=== PATIENT | female | born 1985 | race Caucasian/White ===

== ENCOUNTER 2023-11-30 18:23 | Emergency (ER) | payer OTHER ==
[~2023-11-30] VITALS: Ht 162.6 cm; Wt 53.5 kg
[2023-11-30 18:35] VITALS: BP 122/73; TEMP 97.9; O2SAT 99
[2023-11-30] MEDS ORDERED: LIDOCAINE 1%-EPI 1:100,000 20 ML VIAL ONE (19:03)
[2023-11-30] MEDS: LIDOCAINE 1%-EPI 1:100,000 20 ML VIAL TP ONE (19:04)
== END 2023-11-30 19:54 | disposition home or self-care (01) ==
LOC: ER 18:25
DX: S61.412A Laceration without foreign body of left hand, initial encounter (principal); W25.XXXA Contact with sharp glass, initial encounter; Y93.89 Activity, other specified; Y92.89 Other specified places as the place of occurrence of the external cause; Y99.8 Other external cause status
CPT/HCPCS: 12002; 99282; J3490